=== PATIENT | female | born 1975 | race Caucasian/White ===

== ENCOUNTER → 2020-07-30 | Outpatient (CLI) | payer MEDICARE, OTHER ==
[~2020-07-30] MED LIST: DITROPAN 5 MG TA5 MG PO; DOCUSATE SODIU250 MG PO; FERROUS GLUCON324 M1 PO; HYDROCODONE-AC1 EACH PO; IBUPROFEN600 MG PO; MEDROXYPROGESTE10 MG PO
[2020-07-30 13:55] LABS: HEMOGLOBIN 11.7 gm/dl (12.3-15.3); RED BLOOD COUNT 4.14 M/UL (4.00-5.10); WHITE BLOOD COUNT 8.2 K/UL (4.5-11.0)
== END ==
LOC: ECHO 12:39
PROVIDERS: Internal Medicine Cardiovascular Disease
DX: R55 Syncope and collapse (principal); R00.2 Palpitations; I27.20 Pulmonary hypertension, unspecified; I08.1 Rheumatic disorders of both mitral and tricuspid valves
CPT/HCPCS: ECHO; 36415; 84439; 84443; 85025; 93306

== ENCOUNTER 2020-08-14 09:06 | Inpatient (IN) | payer MEDICARE, OTHER ==
[~2020-08-14] VITALS: Ht 162.6 cm; Wt 62.6 kg
[2020-08-14 10:05] LABS: RED BLOOD COUNT 2.33 M/UL (4.00-5.10); WHITE BLOOD COUNT 5.2 K/UL (4.5-11.0)
[2020-08-14 10:40] LABS: BUN/CREATININE RATIO 12 (0-10)
[2020-08-14 10:52] LABS: HEMOGLOBIN 6.4 gm/dl (12.3-15.3)
[2020-08-14 20:16] LABS: HEMOGLOBIN 8.9 gm/dl (12.3-15.3)
[2020-08-15 06:26] LABS: HEMOGLOBIN 8.5 gm/dl (12.3-15.3)
[2020-08-15 06:27] LABS: BUN/CREATININE RATIO 17 (0-10)
[2020-08-15 06:28] LABS: RED BLOOD COUNT 3.13 M/UL (4.00-5.10); WHITE BLOOD COUNT 7.1 K/UL (4.5-11.0)
[2020-08-15 12:08] LABS: HEMOGLOBIN 8.6 gm/dl (12.3-15.3)
[2020-08-15] MEDS ORDERED: MEDROXYPROGESTE10 MG PO (19:40)
[2020-08-15] MEDS ORDERED: FERROUS GLUCON324 M1 PO (19:40)
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
--- NOTE | 2020-08-16 02:33 | NUR ---
2039 DISCHARGED INSTRUCTIONS GIVEN AND WENT OVER WITH PT. PT VERBALIZED UNDERSTANDING. PERSCRIPTIONS X2 GIVEN TO PT. INSTRUCTED TO START THE IRON PILL IN THE MORNING. INSTRUCTED TO FOLLOW UP IN 1 WEEK WITH DOCTOR AND LABS SHEET FOR OUTPATIENT GIVEN TO PT. PT VERBALIZED UNDERSTANDING.
== END 2020-08-15 21:23 | disposition home or self-care (01) | DRG 760 ==
LOC: ER1 09:06 → CDU 11:30 → M/S 19:22
PROVIDERS: Emergency Medicine; Physician Assistant; ADMIT Internal Medicine Infectious Disease
PROC: 30233N1 Transfusion of Nonautologous Red Blood Cells into Peripheral Vein, Percutaneous Approach (ICD-10-PCS; principal; 2020-08-14)
DX: N93.8 Other specified abnormal uterine and vaginal bleeding (principal); D62 Acute posthemorrhagic anemia; R55 Syncope and collapse; I34.1 Nonrheumatic mitral (valve) prolapse; F17.210 Nicotine dependence, cigarettes, uncomplicated; N80.9 Endometriosis, unspecified; N83.202 Unspecified ovarian cyst, left side; Z98.890 Other specified postprocedural states; Z90.721 Acquired absence of ovaries, unilateral; Z82.49 Family history of ischemic heart disease and other diseases of the circulatory system; Z83.3 Family history of diabetes mellitus; Z80.9 Family history of malignant neoplasm, unspecified; Z20.822 Contact with and (suspected) exposure to COVID-19
CPT/HCPCS: 36415; 36430; 70450; 71045; 76830; 80048; 80053; 81001; 82550; 82553; 82728; 83540; 83550; 83874; 83880; 84484; 84703; 85014; 85018; 85025; 85379; 85610; 85730; 86850; 86900; 86901; 86920; 93005; 99285; G0008; J1756; J7030; J7050; P9016; U0002

== ENCOUNTER 2020-08-16 20:03 | Emergency (ER) | payer MEDICARE, OTHER ==
[~2020-08-16 20:03] MED LIST changes: -DITROPAN 5 MG TA5 MG PO; -DOCUSATE SODIU250 MG PO; -HYDROCODONE-AC1 EACH PO; -IBUPROFEN600 MG PO
== END 2020-08-16 22:31 | disposition left against medical advice (07) ==
LOC: ER1 20:03
DX: Z53.21 Procedure and treatment not carried out due to patient leaving prior to being seen by health care provider (principal)

== ENCOUNTER → 2020-09-18 | Outpatient (CLI) | payer MEDICARE, OTHER ==
[~2020-09-18] MED LIST changes: +DITROPAN 5 MG TA5 MG PO; +DOCUSATE SODIU250 MG PO; +HYDROCODONE-AC1 EACH PO; +IBUPROFEN600 MG PO
[2020-09-18 11:23] LABS: HEMOGLOBIN 12.5 gm/dl (12.3-15.3); RED BLOOD COUNT 4.15 M/UL (4.00-5.10); WHITE BLOOD COUNT 9.3 K/UL (4.5-11.0)
== END ==
LOC: OPSV2 10:05
PROVIDERS: Obstetrics & Gynecology
DX: Z01.818 Encounter for other preprocedural examination (principal); N93.8 Other specified abnormal uterine and vaginal bleeding; R94.31 Abnormal electrocardiogram [ECG] [EKG]
CPT/HCPCS: 81001; 85025; 93005

== ENCOUNTER 2020-09-24 07:48 | Day surgery (SDC) | payer MEDICARE, OTHER ==
[~2020-09-24] VITALS: Ht 162.6 cm; Wt 62.6 kg
[~2020-09-24 07:48] MED LIST changes: -DITROPAN 5 MG TA5 MG PO; -DOCUSATE SODIU250 MG PO; -HYDROCODONE-AC1 EACH PO; -IBUPROFEN600 MG PO
[2020-09-24] MEDS ORDERED: DOCUSATE SODIU250 MG PO (12:46)
[2020-09-24] MEDS ORDERED: HYDROCODONE-AC1 EACH PO (12:46)
[2020-09-24] MEDS ORDERED: DITROPAN 5 MG TA5 MG PO (12:46)
[2020-09-24] MEDS ORDERED: IBUPROFEN600 MG PO (12:46)
--- NOTE | 2020-09-24 20:13 | NUR ---
PHONE CALL TO DR. SAN. PT DOING WELL. VOIDED AND TOLERATED REGULAR DEIT. REQUESTING TO GO HOME. PRESCRIPTION FOR TONIGHT [facility].
== END 2020-09-24 20:57 | disposition home or self-care (01) ==
LOC: OR 07:48 → OB 15:55 → OR 20:57
PROVIDERS: Obstetrics & Gynecology
PROC: 0UT64ZZ Resection of Left Fallopian Tube, Percutaneous Endoscopic Approach (ICD-10-PCS; 2020-09-24)
PROC: 0UT94ZZ Resection of Uterus, Percutaneous Endoscopic Approach (ICD-10-PCS; principal; 2020-09-24 12:00)
DX: N80.0 Endometriosis of uterus (principal); N72 Inflammatory disease of cervix uteri; N73.6 Female pelvic peritoneal adhesions (postinfective); D64.9 Anemia, unspecified; F17.210 Nicotine dependence, cigarettes, uncomplicated; K21.9 Gastro-esophageal reflux disease without esophagitis; Z98.891 History of uterine scar from previous surgery; Z86.73 Personal history of transient ischemic attack (TIA), and cerebral infarction without residual deficits; Z88.1 Allergy status to other antibiotic agents; Z79.899 Other long term (current) drug therapy; Z98.51 Tubal ligation status
CPT/HCPCS: C1769; J0690; J1100; J1885; J2001; J2250; J2270; J2370; J2405; J2704; J2710; J3010; J7120

== ENCOUNTER → 2020-10-05 | Outpatient (CLI) | payer MEDICARE, OTHER ==
[~2020-10-05] MED LIST changes: +DITROPAN 5 MG TA5 MG PO; +DOCUSATE SODIU250 MG PO; +HYDROCODONE-AC1 EACH PO; +IBUPROFEN600 MG PO
== END ==
LOC: MAMO 07:55
DX: Z12.31 Encounter for screening mammogram for malignant neoplasm of breast (principal); N64.89 Other specified disorders of breast
CPT/HCPCS: 77063; 77067

== ENCOUNTER → 2020-11-08 | Outpatient (CLI) | payer MEDICARE, OTHER | LOC: MAMO 12:49 | DX: R92.8 Other abnormal and inconclusive findings on diagnostic imaging of breast (principal) | CPT/HCPCS: 77065 ==